=== PATIENT | male | born 1955 | race Caucasian/White ===

== ENCOUNTER 2020-12-30 06:54 | Emergency (ER) | payer MEDICARE, OTHER ==
[~2020-12-30] VITALS: Ht 167.6 cm; Wt 91.0 kg
[~2020-12-30 06:54] MED LIST: ASPI-1497 PO; LABE200T9 PO; SIMV-46 PO
[2020-12-30] MEDS ORDERED: IBUPROFEN 600MG TABLET PO ONE (07:30)
[2020-12-30 08:33] LABS: BASOPHILS % 0.2 % (0.0-2.0); EOSINOPHILS % 0.3 % (0.0-5.0); HEMATOCRIT. 42.4 % (42.0-52.0); HEMOGLOBIN. 14.5 g/dL (14.0-18.0); LYMPHOCYTES % 7.6 % (20.0-50.0); MEAN CORPUSCULAR HEMOGLOBIN 30.2 pg (28.0-32.0); MEAN CORPUSCULAR VOLUME 88.2 fL (80.0-94.0); MEAN PLATELET VOLUME 8.4 fl (7.4-10.4); NEUTROPHILS % 85.9 % (40.0-76.0); PLATELET 246 x1000/uL (130-400); RED BLOOD CELL COUNT 4.81 mill/uL (4.7-6.1); RED CELL DISTRIBUTION WIDTH 13.2 % (11.6-14.6)
[2020-12-30 08:40] LABS: CHLORIDE 97 mEq/L (98-107)
[2020-12-30 08:44] LABS: ETHANOL BLOOD < 10 mg/dL
[2020-12-30] MEDS ORDERED: CEPH500T MT (09:03)
[2020-12-30] MEDS ORDERED: IBUP-2029 MT (09:04)
[2020-12-30] MEDS ORDERED: ACETAMINOPHEN 325MG TABLET PO ONE (12:00)
[2020-12-30 13:05] VITALS: BP 132/75
== END 2020-12-30 15:06 | disposition home or self-care (01) ==
LOC: ER 06:54
DX: E11.621 Type 2 diabetes mellitus with foot ulcer (principal); L97.529 Non-pressure chronic ulcer of other part of left foot with unspecified severity; R00.0 Tachycardia, unspecified; I10 Essential (primary) hypertension; N28.9 Disorder of kidney and ureter, unspecified; Z79.4 Long term (current) use of insulin
CPT/HCPCS: 36415; 80053; 80320; 82962; 85025; 93005; 99284; G0480

== ENCOUNTER 2021-01-03 04:35 | Inpatient (IN) | payer MEDICARE, OTHER ==
[~2021-01-03] VITALS: Ht 167.6 cm; Wt 84.5 kg
[~2021-01-03 04:35] MED LIST changes: +CEPH500T MT; +IBUP-2029 MT
[2021-01-03] MEDS ORDERED: MORPHINE SULFATE 4 MG/ML CPJ (NOT FOR IM USE) IV ONE (06:00)
[2021-01-03] MEDS ORDERED: VANCOMYCIN 1 G PREMIX 200 ML IV SCH (06:00)
[2021-01-03 06:22] LABS: BG BASE EXCESS 3.2 mmol/L (-2.0-2.0); BG CARBOXYHEMOGLOBIN 0.9 % (0.5-1.5); BG DEOXYHEMOGLOBIN 11.8 % (0.0-5.0); BG FRACTION INSPIRED OXYGEN 21; BG HCO3 ACT 28.2 mmol/L (22.0-26.0); BG METHEMOGLOBIN 0.2 % (0.0-1.5); BG OXYGEN SATURATION 88.1 % (92.0-98.5); BG OXYHEMOGLOBIN 87.1 % (94.0-97.0); BG PCO2 44.2 mmHg (35.0-45.0); BG PH 7.422 (7.350-7.450); BG PO2 57.1 mmHg (75.0-100.0); BG SAMPLE SITE RIGHT RADIAL; BG TOTAL HEMOGLOBIN 14.2 g/dL (12.0-18.0); BG VENT MODE ROOM AIR
[2021-01-03 06:48] LABS: BASOPHILS % 0.4 % (0.0-2.0); EOSINOPHILS % 0.3 % (0.0-5.0); HEMATOCRIT. 40.5 % (42.0-52.0); HEMOGLOBIN. 13.8 g/dL (14.0-18.0); LYMPHOCYTES % 8.9 % (20.0-50.0); MEAN CORPUSCULAR HEMOGLOBIN 29.8 pg (28.0-32.0); MEAN CORPUSCULAR VOLUME 87.6 fL (80.0-94.0); MEAN PLATELET VOLUME 8.2 fl (7.4-10.4); NEUTROPHILS % 82.4 % (40.0-76.0); PLATELET 325 x1000/uL (130-400); RED BLOOD CELL COUNT 4.63 mill/uL (4.7-6.1); RED CELL DISTRIBUTION WIDTH 12.9 % (11.6-14.6)
[2021-01-03 07:05] LABS: BETA HYDROXYBUTYRATE 0.4 mMol/L (0.0-0.3)
[2021-01-03] MEDS ORDERED: ONDANSETRON HCL 4MG/2ML INJ IV PRN (09:30)
[2021-01-03] MEDS ORDERED: CEFTRIAXONE 1 G PREMIX 50 ML IV NR (09:30)
[2021-01-03] MEDS ORDERED: DIPHENHYDRAMINE 50MG/ML VIAL IV PRN (09:30)
[2021-01-03] MEDS ORDERED: DEXTROSE 50% WATER 50ML SYRINGE IV PRN (10:15)
[2021-01-03] MEDS: BLOOD SUGAR DIAGNOSTIC STRIP TEST SCH ×3 (10:18→22:00)
[2021-01-03] MEDS: INSULIN LISPRO (HIGH DOSE) 100 UNITS/ML SUBCUT SCH ×4 (10:35→22:12)
[2021-01-03 12:29] LABS: CLARITY URINE CLEAR (CLEAR); COLOR URINE YELLOW (YELLOW); KETONES URINE NEGATIVE (NEGATIVE); LEUKOCYTE ESTERASE URINE NEGATIVE (NEGATIVE); NITRITE URINE NEGATIVE (NEGATIVE); OCCULT BLOOD URINE 1+ (NEGATIVE); PH URINE 5.5 (4.5-8.0); PROTEIN URINE 1+ (NEGATIVE); SPECIFIC GRAVITY URINE 1.017 (1.005-1.030); UROBILINOGEN URINE 0.2 E.U./dL (0.2-1.0)
[2021-01-03] MEDS ORDERED: POTASSIUM CHLORIDE INJ 40 MEQ in DEXT 5% WATER 250 ML IV SCH (15:00)
[2021-01-03] MEDS ORDERED: BACITRACIN 15GM TUBE TOP ONE (18:28)
[2021-01-03] MEDS ORDERED: BUPIVACAINE HCL/PF 0.5% (5MG/ML) 10ML ONE (18:28)
[2021-01-03] MEDS ORDERED: LIDOCAINE HCL 1% 20ML VIAL (Pyxis) INJ ONE (18:28)
[2021-01-03] MEDS ORDERED: BACITRACIN 50,000 UNITS/VIAL ONE (18:29)
[2021-01-03] MEDS ORDERED: VANCOMYCIN HCL 1 GM/VIAL ONE (19:01)
[2021-01-03 20:00] VITALS: BP 123/71
[2021-01-03] MEDS ORDERED: VANCOMYCIN 1 G PREMIX 200 ML IV NR (21:00)
[2021-01-03] MEDS ORDERED: HYDROMORPHONE HCL/PF 2MG/ML (OR) ONE (21:12)
[2021-01-03] MEDS ORDERED: DEXAMETHASONE 4MG/ML 1ML VIAL ONE (21:13)
[2021-01-03] MEDS ORDERED: CEFAZOLIN SODIUM 1000MG/VIAL ONE (21:15)
[2021-01-04] MEDS: ACETAMINOPHEN 325MG TABLET PO PRN (03:07)
[2021-01-04 04:00] VITALS: BP 149/76
[2021-01-04 05:07] LABS: BASOPHILS % 0.8 % (0.0-2.0); EOSINOPHILS % 0.2 % (0.0-5.0); HEMATOCRIT. 37.6 % (42.0-52.0); HEMOGLOBIN. 13.1 g/dL (14.0-18.0); MEAN CORPUSCULAR HEMOGLOBIN 30.1 pg (28.0-32.0); MEAN CORPUSCULAR VOLUME 86.2 fL (80.0-94.0); MEAN PLATELET VOLUME 8.7 fl (7.4-10.4); MONOCYTES % 8.6 % (2.0-8.0); NEUTROPHILS % 80.4 % (40.0-76.0); PLATELET 315 x1000/uL (130-400); RED BLOOD CELL COUNT 4.36 mill/uL (4.7-6.1); RED CELL DISTRIBUTION WIDTH 12.8 % (11.6-14.6)
[2021-01-04 05:17] LABS: CHLORIDE 93 mEq/L (98-107)
[2021-01-04 05:25] LABS: LDL CHOLESTEROL 125 mg/dL (5-100)
[2021-01-04 05:26] LABS: HDL CHOLESTEROL 29 mg/dL (40-59)
[2021-01-04] MEDS ORDERED: POTASSIUM CHLORIDE 20MEQ TABLET SR PO NR ×2 (06:15→10:15)
[2021-01-04] MEDS: BLOOD SUGAR DIAGNOSTIC STRIP TEST SCH ×4 (07:20→22:21)
[2021-01-04 08:08] VITALS: BP 152/71
[2021-01-04] MEDS: INSULIN LISPRO (HIGH DOSE) 100 UNITS/ML SUBCUT SCH ×4 (08:52→22:20)
[2021-01-04] MEDS ORDERED: VANCOMYCIN 500 MG PREMIX 100 ML IV SCH (09:00)
[2021-01-04] MEDS: HYDROCODONE/ACETAMINOPHEN 5/325MG TABLET PO PRN ×2 (10:30→19:47)
[2021-01-04] MEDS: CEFTRIAXONE 1,000 MG in DEXTROSE 5% WATER 50 ML IV SCH (10:31)
[2021-01-04] MEDS: VANCOMYCIN 1 G PREMIX 200 ML IV SCH (12:14)
[2021-01-04 12:21] VITALS: BP 135/74
[2021-01-04 16:31] VITALS: BP 143/84
[2021-01-04 20:00] VITALS: BP 155/75
[2021-01-04] MEDS: MORPHINE SULFATE 2 MG/ML CPJ (NOT FOR IM USE) IV PRN (21:57)
[2021-01-05] VITALS: BP 143/70
[2021-01-05] MEDS: MORPHINE SULFATE 2 MG/ML CPJ (NOT FOR IM USE) IV PRN ×3 (03:21→21:17)
[2021-01-05 04:00] VITALS: BP 138/68
[2021-01-05] MEDS: VANCOMYCIN 1 G PREMIX 200 ML IV SCH ×2 (05:13→17:15)
[2021-01-05 06:43] LABS: CHLORIDE 90 mEq/L (98-107)
[2021-01-05 06:50] LABS: BASOPHILS % 0.5 % (0.0-2.0); EOSINOPHILS % 0.5 % (0.0-5.0); HEMATOCRIT. 36.6 % (42.0-52.0); HEMOGLOBIN. 12.6 g/dL (14.0-18.0); LYMPHOCYTES % 11.2 % (20.0-50.0); MEAN CORPUSCULAR HEMOGLOBIN 29.9 pg (28.0-32.0); MEAN CORPUSCULAR VOLUME 86.5 fL (80.0-94.0); MEAN PLATELET VOLUME 8.3 fl (7.4-10.4); MONOCYTES % 6.2 % (2.0-8.0); NEUTROPHILS % 81.6 % (40.0-76.0); PLATELET 355 x1000/uL (130-400); RED BLOOD CELL COUNT 4.23 mill/uL (4.7-6.1); RED CELL DISTRIBUTION WIDTH 12.6 % (11.6-14.6)
[2021-01-05] MEDS: BLOOD SUGAR DIAGNOSTIC STRIP TEST SCH ×4 (07:20→21:16)
[2021-01-05 08:00] VITALS: BP 129/72
[2021-01-05] MEDS: INSULIN LISPRO (HIGH DOSE) 100 UNITS/ML SUBCUT SCH ×4 (08:28→21:21)
[2021-01-05] MEDS ORDERED: POTASSIUM CHLORIDE 20MEQ/PACKET PO NR (09:45)
[2021-01-05] MEDS: CEFTRIAXONE 1,000 MG in DEXTROSE 5% WATER 50 ML IV SCH (11:01)
[2021-01-05] MEDS: HYDROCODONE/ACETAMINOPHEN 5/325MG TABLET PO PRN (11:03)
[2021-01-05 12:00] VITALS: BP 138/72
[2021-01-05] MEDS ORDERED: INSULIN LISPRO 100 UNITS/ML SUBCUT SCH (12:45)
[2021-01-05 16:00] VITALS: BP 133/79
[2021-01-05 20:00] VITALS: BP 166/72
[2021-01-05] MEDS ORDERED: INSULIN GLARGINE UD 100 UNITS/ML SYR SUBCUT SCH (22:00)
[2021-01-06] VITALS: BP 135/82
[2021-01-06] MEDS: MORPHINE SULFATE 2 MG/ML CPJ (NOT FOR IM USE) IV PRN (02:17)
[2021-01-06 04:00] VITALS: BP 157/79
[2021-01-06] MEDS: VANCOMYCIN 1 G PREMIX 200 ML IV SCH ×2 (06:24→17:42)
[2021-01-06 06:38] LABS: CHLORIDE 86 mEq/L (98-107)
[2021-01-06 06:44] LABS: BASOPHILS % 0.3 % (0.0-2.0); EOSINOPHILS % 0.7 % (0.0-5.0); HEMATOCRIT. 36.9 % (42.0-52.0); LYMPHOCYTES % 11.2 % (20.0-50.0); MEAN CORPUSCULAR VOLUME 85.4 fL (80.0-94.0); MEAN PLATELET VOLUME 8.5 fl (7.4-10.4); NEUTROPHILS % 81.8 % (40.0-76.0); PLATELET 326 x1000/uL (130-400); RED BLOOD CELL COUNT 4.33 mill/uL (4.7-6.1); RED CELL DISTRIBUTION WIDTH 12.6 % (11.6-14.6)
[2021-01-06] MEDS: BLOOD SUGAR DIAGNOSTIC STRIP TEST SCH ×4 (07:20→20:35)
[2021-01-06 09:30] VITALS: BP 166/89
[2021-01-06] MEDS ORDERED: POTASSIUM CHLORIDE 20MEQ TABLET SR PO SCH (09:30)
[2021-01-06] MEDS: CEFTRIAXONE 1,000 MG in DEXTROSE 5% WATER 50 ML IV SCH (09:37)
[2021-01-06] MEDS: INSULIN LISPRO (HIGH DOSE) 100 UNITS/ML SUBCUT SCH ×4 (09:39→21:03)
[2021-01-06] MEDS: HYDROCODONE/ACETAMINOPHEN 5/325MG TABLET PO PRN ×2 (10:08→17:44)
[2021-01-06] MEDS ORDERED: POTASSIUM CHLORIDE INJ 40 MEQ in DEXT 5% WATER 250 ML IV SCH (11:00)
[2021-01-06 12:04] VITALS: BP 155/99
[2021-01-06] MEDS: INSULIN GLARGINE UD 100 UNITS/ML SYR SUBCUT SCH ×2 (15:12→21:02)
[2021-01-06 16:09] VITALS: BP 144/76
[2021-01-06 20:00] VITALS: BP 152/76
[2021-01-06] MEDS: MEROPENEM 1,000 MG in SODIUM CHLORIDE 0.9% 100 ML IV SCH (21:02)
[2021-01-07] VITALS: BP 146/86
[2021-01-07] MEDS: HYDROCODONE/ACETAMINOPHEN 5/325MG TABLET PO PRN ×3 (02:03→19:33)
[2021-01-07] MEDS: MORPHINE SULFATE 2 MG/ML CPJ (NOT FOR IM USE) IV PRN ×2 (03:25→21:50)
[2021-01-07 04:00] VITALS: BP 157/86
[2021-01-07] MEDS: MEROPENEM 1,000 MG in SODIUM CHLORIDE 0.9% 100 ML IV SCH ×3 (05:10→21:50)
[2021-01-07] MEDS: VANCOMYCIN 1 G PREMIX 200 ML IV SCH ×2 (05:10→21:50)
[2021-01-07 06:44] LABS: BASOPHILS % 0.3 % (0.0-2.0); EOSINOPHILS % 0.7 % (0.0-5.0); HEMATOCRIT. 37.3 % (42.0-52.0); HEMOGLOBIN. 13.2 g/dL (14.0-18.0); LYMPHOCYTES % 10.6 % (20.0-50.0); MEAN CORPUSCULAR HEMOGLOBIN 29.9 pg (28.0-32.0); MEAN CORPUSCULAR VOLUME 84.7 fL (80.0-94.0); MEAN PLATELET VOLUME 8.2 fl (7.4-10.4); MONOCYTES % 6.3 % (2.0-8.0); NEUTROPHILS % 82.1 % (40.0-76.0); PLATELET 373 x1000/uL (130-400); RED CELL DISTRIBUTION WIDTH 12.9 % (11.6-14.6)
[2021-01-07] MEDS: BLOOD SUGAR DIAGNOSTIC STRIP TEST SCH ×4 (06:46→20:27)
[2021-01-07 07:16] LABS: CHLORIDE 85 mEq/L (98-107)
[2021-01-07 08:00] VITALS: BP 150/89
[2021-01-07] MEDS: INSULIN LISPRO (HIGH DOSE) 100 UNITS/ML SUBCUT SCH ×4 (08:17→20:38)
[2021-01-07] MEDS: INSULIN GLARGINE UD 100 UNITS/ML SYR SUBCUT SCH ×2 (10:10→21:52)
[2021-01-07 12:00] VITALS: BP 164/85
[2021-01-07] MEDS ORDERED: NALOXONE HCL 0.4MG/ML VIAL IV PRN (12:00)
[2021-01-07] MEDS ORDERED: POTASSIUM CHLORIDE 20MEQ TABLET SR PO SCH (12:15)
[2021-01-07] MEDS: SODIUM CHLORIDE 0.9% 1,000 ML IV SCH (13:53)
[2021-01-07 16:00] VITALS: BP 94/73
[2021-01-07 19:47] VITALS: BP 109/82
[2021-01-07] MEDS ORDERED: SODIUM CHLORIDE 0.9% 200 ML IV SCH (21:00)
[2021-01-07] MEDS ORDERED: VANCOMYCIN 1 G PREMIX 200 ML IV SCH (21:00)
[2021-01-08] VITALS: BP 125/65
[2021-01-08] MEDS: HYDROCODONE/ACETAMINOPHEN 5/325MG TABLET PO PRN (02:01)
[2021-01-08 04:00] VITALS: BP 129/84
[2021-01-08] MEDS: SODIUM CHLORIDE 0.9% 1,000 ML IV SCH ×3 (05:29→21:36)
[2021-01-08] MEDS: MORPHINE SULFATE 2 MG/ML CPJ (NOT FOR IM USE) IV PRN ×5 (05:29→21:52)
[2021-01-08] MEDS: MEROPENEM 1,000 MG in SODIUM CHLORIDE 0.9% 100 ML IV SCH ×3 (05:29→20:59)
[2021-01-08] MEDS: INSULIN LISPRO (HIGH DOSE) 100 UNITS/ML SUBCUT SCH ×4 (07:03→21:30)
[2021-01-08] MEDS: BLOOD SUGAR DIAGNOSTIC STRIP TEST SCH ×4 (07:20→20:44)
[2021-01-08 08:12] VITALS: BP 160/79
[2021-01-08] MEDS: INSULIN GLARGINE UD 100 UNITS/ML SYR SUBCUT SCH ×2 (10:24→22:00)
[2021-01-08] MEDS: VANCOMYCIN 1 G PREMIX 200 ML IV SCH ×2 (10:27→21:00)
[2021-01-08 11:06] VITALS: BP 129/67
[2021-01-08 13:22] LABS: CHLORIDE 87 mEq/L (98-107)
[2021-01-08 16:23] VITALS: BP 148/60
[2021-01-08] MEDS ORDERED: POTASSIUM CHLORIDE 20MEQ TABLET SR PO NR (18:30)
[2021-01-08 20:00] VITALS: BP 144/76
[2021-01-08] MEDS: ACETAMINOPHEN 325MG TABLET PO PRN (21:00)
[2021-01-09] VITALS: BP 127/70
[2021-01-09 04:00] VITALS: BP 140/83
[2021-01-09] MEDS: MEROPENEM 1,000 MG in SODIUM CHLORIDE 0.9% 100 ML IV SCH ×3 (05:00→21:32)
[2021-01-09 05:58] LABS: CHLORIDE 92 mEq/L (98-107)
[2021-01-09] MEDS: BLOOD SUGAR DIAGNOSTIC STRIP TEST SCH ×4 (06:38→20:13)
[2021-01-09] MEDS: MORPHINE SULFATE 2 MG/ML CPJ (NOT FOR IM USE) IV PRN ×2 (06:41→14:21)
[2021-01-09] MEDS: INSULIN LISPRO (HIGH DOSE) 100 UNITS/ML SUBCUT SCH ×4 (07:50→21:33)
[2021-01-09 08:00] VITALS: BP 148/76
[2021-01-09] MEDS ORDERED: POTASSIUM CHLORIDE 20MEQ TABLET SR PO NR (09:15)
[2021-01-09] MEDS ORDERED: LIDOCAINE HCL 1% 20ML VIAL (Pyxis) INJ ONE (09:19)
[2021-01-09] MEDS: INSULIN GLARGINE UD 100 UNITS/ML SYR SUBCUT SCH ×2 (11:28→21:33)
[2021-01-09 11:37] VITALS: BP 127/70
[2021-01-09 16:12] VITALS: BP 148/82
[2021-01-09 16:52] LABS: CHLORIDE 88 mEq/L (98-107)
[2021-01-09 16:58] LABS: PHOSPHORUS 2.6 mg/dL (2.5-4.9)
[2021-01-09] MEDS: SODIUM CHLORIDE 0.9% 1,000 ML IV SCH ×2 (17:19→20:13)
[2021-01-09] MEDS: VANCOMYCIN 1500MG in DEXTROSE 5% WATER 250ML IV SCH (18:01)
[2021-01-09] MEDS: POTASSIUM CHLORIDE 20MEQ TABLET SR PO NR ×2 (18:51→18:52)
[2021-01-09 20:00] VITALS: BP 106/67
[2021-01-09] MEDS ORDERED: MAGNESIUM 4 G PREMIX 100 ML IV NR (20:00)
[2021-01-09] MEDS: ACETAMINOPHEN 325MG TABLET PO PRN (21:32)
[2021-01-10] VITALS: BP 168/87
[2021-01-10] MEDS: MORPHINE SULFATE 2 MG/ML CPJ (NOT FOR IM USE) IV PRN ×2 (01:44→08:08)
[2021-01-10] MEDS: HYDROCODONE/ACETAMINOPHEN 5/325MG TABLET PO PRN (03:42)
[2021-01-10 04:00] VITALS: BP 112/90
[2021-01-10] MEDS: MEROPENEM 1,000 MG in SODIUM CHLORIDE 0.9% 100 ML IV SCH ×3 (05:12→21:20)
[2021-01-10 05:21] LABS: BASOPHILS % 0.2 % (0.0-2.0); EOSINOPHILS % 1.1 % (0.0-5.0); HEMATOCRIT. 37.7 % (42.0-52.0); HEMOGLOBIN. 12.9 g/dL (14.0-18.0); LYMPHOCYTES % 13.6 % (20.0-50.0); MEAN CORPUSCULAR HEMOGLOBIN 29.8 pg (28.0-32.0); MEAN CORPUSCULAR VOLUME 87.4 fL (80.0-94.0); MEAN PLATELET VOLUME 8.1 fl (7.4-10.4); MONOCYTES % 7.1 % (2.0-8.0); PLATELET 528 x1000/uL (130-400); RED BLOOD CELL COUNT 4.31 mill/uL (4.7-6.1); RED CELL DISTRIBUTION WIDTH 12.8 % (11.6-14.6)
[2021-01-10 05:51] LABS: CHLORIDE 93 mEq/L (98-107)
[2021-01-10 05:58] LABS: LDL CHOLESTEROL 105 mg/dL (5-100)
[2021-01-10 06:00] LABS: HDL CHOLESTEROL 26 mg/dL (40-59)
[2021-01-10] MEDS: BLOOD SUGAR DIAGNOSTIC STRIP TEST SCH ×4 (06:28→20:49)
[2021-01-10] MEDS: INSULIN LISPRO (HIGH DOSE) 100 UNITS/ML SUBCUT SCH ×4 (07:50→21:21)
[2021-01-10 08:00] VITALS: BP 142/62
[2021-01-10] MEDS ORDERED: POTASSIUM CHLORIDE 20MEQ TABLET SR PO SCH (08:00)
[2021-01-10] MEDS: SODIUM CHLORIDE 0.9% 1,000 ML IV SCH ×2 (08:44→18:36)
[2021-01-10] MEDS: INSULIN GLARGINE UD 100 UNITS/ML SYR SUBCUT SCH ×2 (10:00→21:22)
[2021-01-10 12:00] VITALS: BP 135/78
[2021-01-10] MEDS ORDERED: POTASSIUM CHLORIDE 20MEQ/PACKET PO SCH (15:00)
[2021-01-10] MEDS ORDERED: LIDOCAINE HCL 1% 20ML VIAL (Pyxis) INJ ONE (15:18)
[2021-01-10] MEDS ORDERED: POLYMYXIN B SULFATE 500000 UNITS/VIAL ONE (15:19)
[2021-01-10] MEDS ORDERED: BUPIVACAINE HCL/PF 0.5% (5MG/ML) 10ML ONE (15:19)
[2021-01-10] MEDS ORDERED: ROPIVACAINE HCL 10MG/ML 20 ML VIAL EPI ONE (15:46)
[2021-01-10] MEDS ORDERED: MIDAZOLAM HCL 5 MG/5 ML VIAL ONE (15:46)
[2021-01-10] MEDS ORDERED: PROPOFOL 200MG/20ML VIAL IV ONE ×2 (15:46→16:18)
[2021-01-10] MEDS ORDERED: SUCCINYLCHOLINE CHLORIDE 200MG/10ML IV ONE (15:47)
[2021-01-10] MEDS ORDERED: FENTANYL CITRATE/PF 50MCG/ML 2ML VIAL ONE (16:03)
[2021-01-10 17:45] VITALS: BP 144/66
[2021-01-10] MEDS: VANCOMYCIN 1500MG in DEXTROSE 5% WATER 250ML IV SCH (18:36)
[2021-01-10 18:49] LABS: PHOSPHORUS 3.3 mg/dL (2.5-4.9)
[2021-01-10 20:00] VITALS: BP 159/71
[2021-01-11] VITALS: BP 149/77
[2021-01-11] MEDS: MORPHINE SULFATE 2 MG/ML CPJ (NOT FOR IM USE) IV PRN ×4 (02:47→20:01)
[2021-01-11 04:00] VITALS: BP 139/71
[2021-01-11] MEDS: ACETAMINOPHEN 325MG TABLET PO PRN ×2 (05:08→15:55)
[2021-01-11] MEDS: SODIUM CHLORIDE 0.9% 1,000 ML IV SCH ×3 (05:08→23:48)
[2021-01-11] MEDS: MEROPENEM 1,000 MG in SODIUM CHLORIDE 0.9% 100 ML IV SCH ×3 (05:09→20:01)
[2021-01-11] MEDS: BLOOD SUGAR DIAGNOSTIC STRIP TEST SCH ×4 (06:41→20:14)
[2021-01-11 08:00] VITALS: BP 145/75
[2021-01-11] MEDS: INSULIN LISPRO (HIGH DOSE) 100 UNITS/ML SUBCUT SCH ×4 (09:09→20:21)
[2021-01-11 09:46] LABS: BASOPHILS % 0.3 % (0.0-2.0); EOSINOPHILS % 0.5 % (0.0-5.0); HEMATOCRIT. 34.6 % (42.0-52.0); HEMOGLOBIN. 12.2 g/dL (14.0-18.0); LYMPHOCYTES % 10.7 % (20.0-50.0); MEAN CORPUSCULAR HEMOGLOBIN 30.3 pg (28.0-32.0); MEAN CORPUSCULAR VOLUME 85.8 fL (80.0-94.0); MONOCYTES % 7.4 % (2.0-8.0); NEUTROPHILS % 81.1 % (40.0-76.0); PLATELET 544 x1000/uL (130-400); RED BLOOD CELL COUNT 4.03 mill/uL (4.7-6.1); RED CELL DISTRIBUTION WIDTH 12.8 % (11.6-14.6)
[2021-01-11 09:55] LABS: CHLORIDE 93 mEq/L (98-107)
[2021-01-11] MEDS: INSULIN GLARGINE UD 100 UNITS/ML SYR SUBCUT SCH ×2 (11:14→21:56)
[2021-01-11 12:00] VITALS: BP 158/85
[2021-01-11 16:00] VITALS: BP 160/83
[2021-01-11] MEDS: VANCOMYCIN 1500MG in DEXTROSE 5% WATER 250ML IV SCH (18:48)
[2021-01-11 20:00] VITALS: BP 160/76
[2021-01-11] MEDS ORDERED: POTASSIUM CHLORIDE 20MEQ TABLET SR PO SCH (20:00)
[2021-01-12] VITALS: BP 137/83
[2021-01-12] MEDS: MORPHINE SULFATE 2 MG/ML CPJ (NOT FOR IM USE) IV PRN ×4 (00:08→21:17)
[2021-01-12] MEDS: ACETAMINOPHEN 325MG TABLET PO PRN ×2 (02:10→23:45)
[2021-01-12 04:00] VITALS: BP 154/78
[2021-01-12] MEDS: HYDROCODONE/ACETAMINOPHEN 5/325MG TABLET PO PRN ×3 (04:59→18:35)
[2021-01-12] MEDS: MEROPENEM 1,000 MG in SODIUM CHLORIDE 0.9% 100 ML IV SCH ×3 (05:02→21:16)
[2021-01-12 06:15] LABS: CHLORIDE 95 mEq/L (98-107)
[2021-01-12] MEDS: BLOOD SUGAR DIAGNOSTIC STRIP TEST SCH ×4 (06:53→21:17)
[2021-01-12] MEDS: INSULIN LISPRO (HIGH DOSE) 100 UNITS/ML SUBCUT SCH ×4 (07:34→21:17)
[2021-01-12 08:05] LABS: BASOPHILS % 0.5 % (0.0-2.0); HEMATOCRIT. 35.6 % (42.0-52.0); HEMOGLOBIN. 12.2 g/dL (14.0-18.0); LYMPHOCYTES % 17.9 % (20.0-50.0); MEAN CORPUSCULAR HEMOGLOBIN 30.1 pg (28.0-32.0); MEAN CORPUSCULAR VOLUME 88.3 fL (80.0-94.0); MEAN PLATELET VOLUME 7.8 fl (7.4-10.4); MONOCYTES % 8.5 % (2.0-8.0); NEUTROPHILS % 71.1 % (40.0-76.0); PLATELET 540 x1000/uL (130-400); RED BLOOD CELL COUNT 4.03 mill/uL (4.7-6.1); RED CELL DISTRIBUTION WIDTH 12.5 % (11.6-14.6)
[2021-01-12] MEDS: INSULIN GLARGINE UD 100 UNITS/ML SYR SUBCUT SCH ×2 (10:07→21:49)
[2021-01-12] MEDS: SODIUM CHLORIDE 0.9% 1,000 ML IV SCH ×2 (10:13→21:15)
[2021-01-12 12:00] VITALS: BP 157/78
[2021-01-12] MEDS ORDERED: POTASSIUM CHLORIDE 20MEQ TABLET SR PO NR (15:00)
[2021-01-12 16:20] VITALS: BP 156/75
[2021-01-12] MEDS: VANCOMYCIN 1500MG in DEXTROSE 5% WATER 250ML IV SCH (19:22)
[2021-01-12 20:30] VITALS: BP 142/67
[2021-01-13] VITALS (7 sets, daily range): BP systolic 110–173; BP diastolic 63–93
[2021-01-13] MEDS: MORPHINE SULFATE 2 MG/ML CPJ (NOT FOR IM USE) IV PRN ×2 (02:39→10:44)
[2021-01-13] MEDS: HYDROCODONE/ACETAMINOPHEN 5/325MG TABLET PO PRN (04:23)
[2021-01-13] MEDS: MEROPENEM 1,000 MG in SODIUM CHLORIDE 0.9% 100 ML IV SCH ×2 (04:29→13:29)
[2021-01-13] MEDS: CLONIDINE 0.1MG TABLET PO PRN ×2 (04:29→10:47)
[2021-01-13] MEDS: SODIUM CHLORIDE 0.9% 1,000 ML IV SCH (06:01)
[2021-01-13] MEDS: BLOOD SUGAR DIAGNOSTIC STRIP TEST SCH ×2 (06:21→13:07)
[2021-01-13] MEDS: INSULIN LISPRO (HIGH DOSE) 100 UNITS/ML SUBCUT SCH ×3 (07:50→13:31)
[2021-01-13] MEDS: INSULIN GLARGINE UD 100 UNITS/ML SYR SUBCUT SCH (10:48)
[2021-01-13] MEDS ORDERED: AMLODIPINE 5MG TABLET PO SCH (13:00)
[2021-01-13] MEDS ORDERED: MORPHINE SULFATE 2 MG/ML CPJ (NOT FOR IM USE) IV PRN (14:00)
[2021-01-13] MEDS: HYDROCODONE/ACETAMINOPHEN 10/325MG TABLET PO PRN ×2 (14:01→17:05)
[2021-01-13] MEDS ORDERED: AMLO5TAB88 PO (17:02)
== END 2021-01-13 17:42 | DRG 853 ==
LOC: ER 04:35 → UNDOADMIN 09:27 → 6WST 09:27 → MICUSO 09:27 → 6WST 01-11 05:47
PROVIDERS: ADMIT Internal Medicine; ATTEND Internal Medicine
PROC: 0Y6N0ZF Detachment at Left Foot, Partial 5th Ray, Open Approach (ICD-10-PCS; principal; 2021-01-03)
PROC: 0JBR0ZZ Excision of Left Foot Subcutaneous Tissue and Fascia, Open Approach (ICD-10-PCS; 2021-01-03)
PROC: B5181ZA Fluoroscopy of Superior Vena Cava using Low Osmolar Contrast, Guidance (ICD-10-PCS; 2021-01-09)
PROC: 02HV33Z Insertion of Infusion Device into Superior Vena Cava, Percutaneous Approach (ICD-10-PCS; 2021-01-09)
PROC: B548ZZA Ultrasonography of Superior Vena Cava, Guidance (ICD-10-PCS; 2021-01-09)
PROC: 0Y6N0ZD Detachment at Left Foot, Partial 4th Ray, Open Approach (ICD-10-PCS; 2021-01-10)
DX: A41.9 Sepsis, unspecified organism (principal); A48.0 Gas gangrene; E11.52 Type 2 diabetes mellitus with diabetic peripheral angiopathy with gangrene; L02.612 Cutaneous abscess of left foot; L03.116 Cellulitis of left lower limb; E87.1 Hypo-osmolality and hyponatremia; Z16.12 Extended spectrum beta lactamase (ESBL) resistance; M86.8X7 Other osteomyelitis, ankle and foot; E11.621 Type 2 diabetes mellitus with foot ulcer; E11.65 Type 2 diabetes mellitus with hyperglycemia; L03.032 Cellulitis of left toe; S92.502A Displaced unspecified fracture of left lesser toe(s), initial encounter for closed fracture; I10 Essential (primary) hypertension; R23.0 Cyanosis; Z60.2 Problems related to living alone; E87.6 Hypokalemia; E78.00 Pure hypercholesterolemia, unspecified; L97.529 Non-pressure chronic ulcer of other part of left foot with unspecified severity; E87.8 Other disorders of electrolyte and fluid balance, not elsewhere classified; E11.69 Type 2 diabetes mellitus with other specified complication; X58.XXXA Exposure to other specified factors, initial encounter; Z20.822 Contact with and (suspected) exposure to COVID-19; Z79.4 Long term (current) use of insulin; Z79.899 Other long term (current) drug therapy; Z79.1 Long term (current) use of non-steroidal anti-inflammatories (NSAID); Z79.82 Long term (current) use of aspirin; Z79.51 Long term (current) use of inhaled steroids; Y93.89 Activity, other specified; Y92.89 Other specified places as the place of occurrence of the external cause; Y99.8 Other external cause status; B96.1 Klebsiella pneumoniae [K. pneumoniae] as the cause of diseases classified elsewhere; B95.62 Methicillin resistant Staphylococcus aureus infection as the cause of diseases classified elsewhere; B95.2 Enterococcus as the cause of diseases classified elsewhere; B96.4 Proteus (mirabilis) (morganii) as the cause of diseases classified elsewhere
CPT/HCPCS: 36415; 36573; 36600; 71045; 73620; 80048; 80053; 80061; 80202; 81003; 82010; 82375; 82533; 82805; 82962; 83036; 83735; 83930; 84100; 84132; 84295; 84300; 84443; 84484; 85025; 87070; 87075; 87077; 87186; 87426; 88304; 88305; 88311; 93005; 93923; 93970; 97022; 97162; 97164; 97535; 99285; C1725; C1893; J0330; J0690; J0696; J1100; J1170; J1815; J2185; J2250; J2270; J2704; J2795; J3010; J3370; J3475; J3480; J3490; J7030; J7050; J7060

== ENCOUNTER 2024-10-11 17:33 | Emergency (ER) | payer MEDICARE, MEDICAID ==
[~2024-10-11] VITALS: Ht 167.6 cm; Wt 81.0 kg
[~2024-10-11 17:33] MED LIST changes: +AMLO5TAB88 PO; -CEPH500T MT; -IBUP-2029 MT; -LABE200T9 PO
[2024-10-11 17:36] VITALS: O2SAT 97
[2024-10-11 17:57] VITALS: TEMP 36.7
[2024-10-11 18:44] LABS: BASOPHILS % 0.6 % (0.0-2.0); EOSINOPHILS % 2.3 % (0.0-5.0); HEMATOCRIT. 38.4 % (42.0-52.0); HEMOGLOBIN. 13.2 g/dL (14.0-18.0); LYMPHOCYTES % 28.7 % (20.0-50.0); MEAN CORPUSCULAR HEMOGLOBIN 29.9 pg (28.0-32.0); MEAN CORPUSCULAR HGB CONC 34.3 g/dL (31.0-37.0); MEAN PLATELET VOLUME 8.1 fl (7.4-10.4); MONOCYTES % 6.4 % (2.0-8.0); PLATELET 242 x1000/uL (130-400); RED BLOOD CELL COUNT 4.41 mill/uL (4.7-6.1); RED CELL DISTRIBUTION WIDTH 13.8 % (11.6-14.6); WHITE BLOOD COUNT 11.8 x1000/uL (4.5-11.0)
[2024-10-11 18:55] LABS: POTASSIUM 3.4 mEq/L (3.5-5.1)
[2024-10-11 18:57] LABS: CALCIUM 9.1 mg/dL (8.7-10.4)
[2024-10-11 19:01] LABS: CREATININE 1.6 mg/dL (0.6-1.3)
[2024-10-11 20:01] VITALS: RESP 16
[2024-10-11 20:50] VITALS: BP 124/68; PULSE 78; O2SAT 98
== END 2024-10-11 20:57 | disposition home or self-care (01) ==
LOC: ER 17:33
DX: I10 Essential (primary) hypertension (principal); F10.129 Alcohol abuse with intoxication, unspecified; E11.9 Type 2 diabetes mellitus without complications; Z79.82 Long term (current) use of aspirin; Z79.899 Other long term (current) drug therapy; Y90.9 Presence of alcohol in blood, level not specified
CPT/HCPCS: 36415; 80048; 80320; 85025; 99283; G0480

== ENCOUNTER 2025-02-15 19:28 | Emergency (ER) | payer OTHER, MEDICAID ==
[~2025-02-15] VITALS: Ht 160 cm; Wt 100.0 kg
[2025-02-15 19:32] VITALS: TEMP 36.4; O2SAT 99
[2025-02-15 20:29] LABS: BASOPHILS % 1.1 % (0.0-2.0); EOSINOPHILS % 2.3 % (0.0-5.0); HEMATOCRIT. 37.5 % (42.0-52.0); HEMOGLOBIN. 13.0 g/dL (14.0-18.0); LYMPHOCYTES % 29.7 % (20.0-50.0); MEAN PLATELET VOLUME 7.7 fl (7.4-10.4); MONOCYTES % 6.9 % (2.0-8.0); NEUTROPHILS % 60.0 % (40.0-76.0); PLATELET 236 x1000/uL (130-400); RED BLOOD CELL COUNT 4.44 mill/uL (4.7-6.1); RED CELL DISTRIBUTION WIDTH 13.4 % (11.6-14.6)
[2025-02-15 20:42] LABS: CREATININE 1.5 mg/dL (0.6-1.3); UREA NITROGEN BLOOD 17.0 mg/dL (9-23)
[2025-02-15 20:43] LABS: ETHANOL BLOOD 273.0 mg/dL (<10)
[2025-02-15] MEDS ORDERED: POTASSIUM CHLORIDE 20MEQ/PACKET PO ONE (21:00)
[2025-02-15] MEDS: POTASSIUM CHLORIDE 20MEQ/PACKET PO SCH (21:54)
[2025-02-16 01:59] LABS: CREATININE 1.3 mg/dL (0.6-1.3); UREA NITROGEN BLOOD 16.0 mg/dL (9-23)
[2025-02-16 05:05] VITALS: BP 132/69; PULSE 100; RESP 18; O2SAT 99
== END 2025-02-15 22:48 | disposition home or self-care (01) ==
LOC: ER 19:28 → CMPBEDREQ 02-17 09:39
DX: T51.0X1A Toxic effect of ethanol, accidental (unintentional), initial encounter (principal); E87.6 Hypokalemia; I10 Essential (primary) hypertension; E11.9 Type 2 diabetes mellitus without complications; Z79.899 Other long term (current) drug therapy; Z79.82 Long term (current) use of aspirin; Y92.89 Other specified places as the place of occurrence of the external cause
CPT/HCPCS: 36415; 80048; 80320; 85025; 93005; 99284; G0480